=== PATIENT | male | born 1945 | race Caucasian/White ===

== ENCOUNTER 2022-09-25 09:07 | Outpatient (CLI) | payer MEDICARE, SELFPAY ==
--- NOTE | ~2022-09-25 | XR_ITS ---
EXAMINATION: XR fl inj shoulder RT - MR/CT DATE: 09/25/2022 10:09 INDICATION: Full-thickness right rotator cuff tear. No prior right shoulder surgery or dislocation. TECHNIQUE: A time-out was performed to verify the patient's name, date of , and procedure to b e performed. The procedure including the risks, benefits, and alternatives was discussed with the pat ient. Risks discussed included bleeding and infection. The patient understood the risks and agreed to proceed. The skin overlying the right glenohumeral joint was prepped and draped in usual sterile fas hion. Anesthetic was administered with 1% lidocaine subcutaneously. A 22 G needle was advanced unde r fluoroscopic guidance into the joint. Subsequently, injectate consisting of 9 mL of 1:4 1% lidocai ne and 1:2 Omnipaque 240 was instilled. The needle was removed and the entry site was cleaned and dr essed. There were no immediate complications. Fluoroscopy exposure time was 0.1 minutes. The total n umber of images was 2. FINDINGS: Real-time fluoroscopy demonstrates the needle and contrast in the right glenohumeral joint. IMPRESSION: 1. Successful right glenohumeral joint injection of contrast for subsequent CT arthrography. Reviewed, dictated and finalized at location A.
--- NOTE | ~2022-09-25 | CT_ITS ---
EXAMINATION: CT shoulder RT w con DATE: 09/25/2022 10:13 INDICATION: Full-thickness right rotator cuff tear. Right shoulder pain. TECHNIQUE: Computed tomography (CT) of the right shoulder was performed without intravenous contrast. Automated exposure control and iterative reconstruction technique were employed. The dose-length pro duct was 205.67 mGy-cm. COMPARISON: None FINDINGS: The acromion undersurface is curved in morphology (type II). There is an os acromiale. Ther e is mild acromioclavicular joint osteoarthritis. There is mild glenohumeral joint osteoarthritis. Th e glenohumeral joint is well distended by contrast. There is contrast in subacromial/subdeltoid bursa and in the acromioclavicular joint. There is a full-thickness tear of anterior supraspinatus tendon measuring 1.7 cm anterior to posterior by 2.0 cm proximal to distal. There is no asymmetric fatty atr ophy of the rotator cuff muscle bellies. IMPRESSION: 1. Full-thickness rotator cuff tear. 2. Mild glenohumeral joint osteoarthritis. 3. Mild acromioclavicular joint osteoarthritis. 4. Os acromiale. Reviewed, dictated and finalized at location A.
== END 2022-09-25 09:08 | disposition home or self-care (01) ==
PROVIDERS: PCP Internal Medicine; Visit Provider Orthopaedic Surgery
DX: M75.121 Complete rotator cuff tear or rupture of right shoulder, not specified as traumatic (principal); M19.011 Primary osteoarthritis, right shoulder
CPT/HCPCS: 23350; 73201; 77002; Q9966; Q9967